=== PATIENT | male | born 1935 | race Caucasian/White ===

== ENCOUNTER 2019-07-14 17:07 | Inpatient (IN) | payer OTHER ==
[2019-07-14 18:15] LABS: Absolute Lymphocytes (CBC) 0.2 K/uL (0.7-4.9); Basophils % 0.2 % (0-1.3); Lymphocytes % 2.3 % (15.3-44.8); MPV 9.5 fL (7.6-11.3)
[2019-07-14] MEDS ORDERED: IBUPROFEN 400 MG TAB ONE (18:20)
[2019-07-14] MEDS ORDERED: NA CHLORIDE 0.9% 1,000 ML ONE (18:20)
[2019-07-14] MEDS ORDERED: IBUPROFEN 200 MG TAB PO ONE (18:20)
[2019-07-14 18:27] LABS: Potassium 3.2 mmol/L (3.5-5.1)
[2019-07-14] MEDS ORDERED: NA CHLORIDE 0.9% 2,000 ML ONE (19:18)
[2019-07-14] MEDS ORDERED: CEFTRIAXONE/SWI 1gm 1 GM/10 ML SYR ONE (19:18)
[2019-07-14] MEDS ORDERED: NA CHLORIDE 0.9% 250 ML ONE (19:18)
[2019-07-14] MEDS ORDERED: AZITHROMYCIN 500 MG INJ IVPB ONE (19:18)
[2019-07-14] MEDS ORDERED: IPRATROPIUM BROM 0.5MG/2.5ML ONE (19:59)
[2019-07-14] MEDS ORDERED: LEVALBUTEROL 1.25 MG/3 ML NEB ONE (19:59)
[2019-07-14 20:35] LABS: Blood Morphology Comment NOT SEEN (NOT SEEN); Platelet Estimate ADEQ
--- NOTE | 2019-07-14 20:36 | RAD REPORT ---
EXAM DESCRIPTION: RAD - Chest Single View - 07/14/2019 6:02 pm CLINICAL HISTORY: Fever COMPARISON: October 2009 TECHNIQUE: AP portable chest image was obtained 1759 hours . FINDINGS: Lung volumes are low. This accentuates interstitial pattern. Minimal patchy opacification is present left base near the diaphragm. Cardiac silhouette is enlarged by body habitus, portable brittany hnique and shallow inspiration. These factors also accentuates vasculature. No measurable pleural eff usion and no pneumothorax. No acute bony abnormality seen. No acute aortic findings suspected. IMPRESSION: Heart, vasculature and lung markings are all accentuated by shallow inspiration. This co uld mask an early failure or volume overload. Patchy left base opacification is also present and could indicate developing or early pneumonia.
--- NOTE | 2019-07-14 20:55 | ER ---
Nurse's Notes [facility] Name: Jay Jay Finn Age: 84 yrs Sex: Male : 1935 Arrival Date: 07/14/2019 Time: 17:10 Bed 26 Private MD: Diagnosis: Pneumonia, unspecified organism;Sepsis, unspecified organism Presentation: 07/14 17:22 Presenting complaint: Patient states: chills since last night. Pt's states "he's aa5 only had a cup of hot chocolate today and he threw it up". Pt denies cough. Pt's reports giving Tylenol 1000mg at 1530. Transition of care: patient was not received from another setting of care. Onset of symptoms was July 14, 2019. Risk Assessment: Do you want to hurt yourself or someone else? Patient reports no desire to harm self or others. Initial Sepsis Screen: Does the patient meet any 2 criteria? Systolic BP < 90 mmHg. HR > 90 bpm. Does the patient have a suspected source of infection? Yes:. Care prior to arrival: None. 17:22 Acuity: KEENA 2 aa5 17:22 Method Of Arrival: Wheelchair aa5 17:22 Initial Sepsis Screen: If YES to both, name of provider notified: Torrie MARCIALaa5 Historical: - Allergies: 17:24 No Known Allergies; aa5 - Home Meds: 17:26 lovastatin 40 mg Oral tab once daily [Active]; metformin 500 mg Oral tab 2 times per aa5 day [Active]; lisinopril-hydrochlorothiazide 20-12.5 mg oral tab once daily [Active]; - PMHx: 17:24 Hypertension; Diabetes - NIDDM; Hyperlipidemia; aa5 - PSHx: 17:26 pamela knees; aa5 - Immunization history:: Adult Immunizations up to date. - Ebola Screening: : No symptoms or risks identified at this time. - Social history:: Smoking status: Patient/guardian denies using tobacco. Screenin:55 Abuse screen: Denies threats or abuse. Denies injuries from another. Nutritional wh screening: No deficits noted. Tuberculosis screening: No symptoms or risk factors identified. Fall Risk None identified. Assessment: 17:45 General: Appears in no apparent distress. Behavior is calm, cooperative, appropriate wh for age. Pain: Denies pain. Neuro: Level of Consciousness is awake, alert, obeys commands, Oriented to person, place, time, situation, Appropriate for age. Cardiovascular: Heart tones S1 S2. Respiratory: Airway is patent Respiratory effort is even, unlabored, Respiratory pattern is regular, symmetrical, Breath sounds are clear bilaterally. GI: Abdomen is flat, non-distended, Bowel sounds present X 4 quads. : No signs and/or symptoms were reported regarding the genitourinary system. EENT: No signs and/or symptoms were reported regarding the EENT system. Derm: Skin is intact, is healthy with good turgor, Skin is pink, warm \\T\\ dry. normal. Musculoskeletal: Circulation, motion, and sensation intact. 18:54 Reassessment: Patient appears in no apparent distress at this time. No changes from previously documented assessment. Patient and/or family updated on plan of care and expected duration. Pain level reassessed. Patient is alert, oriented x 3, equal unlabored respirations, skin warm/dry/pink. Patient denies pain at this time. 19:45 Reassessment: Patient appears in no apparent distress at this time. No changes from wh previously documented assessment. Patient and/or family updated on plan of care and expected duration. Pain level reassessed. Patient is alert, oriented x 3, equal unlabored respirations, skin warm/dry/pink. Patient denies pain at this time. 20:51 Reassessment: Patient appears in no apparent distress at this time. No changes from wh previously documented assessment. Patient and/or family updated on plan of care and expected duration. Pain level reassessed. Patient is alert, oriented x 3, equal unlabored respirations, skin warm/dry/pink. Patient denies pain at this time. 22:30 Reassessment: Patient appears in no apparent distress at this time. No changes from wh previously documented assessment. Patient and/or family updated on plan of care and expected duration. Pain level reassessed. Patient is alert, oriented x 3, equal unlabored respirations, skin warm/dry/pink. Patient denies pain at this time. Vital Signs: 17:23 BP 88 / 55; Pulse 110; Resp 18 S; Temp 100.0(O); Pulse Ox 92% on R/A; aa5 18:54 BP 87 / 61; Pulse 81; Resp 18; Temp 98.8; Pulse Ox 96% on R/A; 19:14 Weight 106.14 kg; Height 6 ft. (182.88 cm); wh 19:45 BP 83 / 60; Pulse 75; Resp 18; Pulse Ox 96% on R/A; wh 20:53 BP 85 / 61; Pulse 71; Resp 18; Pulse Ox 96% on R/A; wh 22:30 BP 85 / 58; Pulse 75; Resp 18; Pulse Ox 94% on R/A; wh 23:39 BP 93 / 67; Pulse 82; Resp 17; Pulse Ox 97% on R/A; wh 19:14 Body Mass Index 31.74 (106.14 kg, 182.88 cm) ED Course: 17:10 Patient arrived in ED. cl3 17:21 Arm band placed on. aa5 17:23 Triage completed. aa5 17:30 Luciano Louie is Primary Nurse. 17:32 Torrie Najera FNP-C is [facility]. kb 17:32 Javid Harrell MD is Attending Physician. kb 17:50 EKG done, by ED staff. lt1 17:55 Initial lab(s) drawn, by me, sent to lab. First set of blood cultures drawn by me. lt1 18:01 Inserted saline lock: 20 gauge in right antecubital area, using aseptic technique. lt1 18:56 Patient has correct armband on for positive identification. Bed in low position. Call light in reach. Side rails up X 1. Pulse ox on. NIBP on. 20:54 Renzo Mcclure MD is Hospitalizing Provider. kb 23:32 No provider procedures requiring assistance completed. Patient admitted, IV remains in place. Administered Medications: 18:22 Drug: NS 0.9% 1000 ml Route: IV; Rate: 1000 ml; Site: right antecubital; 22:32 Follow up: Response: No adverse reaction; IV Status: Completed infusion 18:22 Drug: Ibuprofen 600 mg Route: PO; 23:40 Follow up: Response: No adverse reaction; Temperature is decreased 19:25 Drug: NS 0.9% (30 ml/kg) 30 ml/kg Route: IV; Rate: bolus; Site: right antecubital; 22:31 Follow up: Response: No adverse reaction; IV Status: Completed infusion 19:26 Drug: Rocephin 1 grams Route: IV; Rate: calculated rate; Site: right antecubital; 22:31 Follow up: Response: No adverse reaction; IV Status: Completed infusion 19:28 Drug: Zithromax 500 mg Route: IVPB; Infused Over: 1 hrs; Site: right antecubital; 22:32 Follow up: Response: No adverse reaction; IV Status: Completed infusion 20:07 Drug: Xopenex 1.25 mg Route: Inhalation; 20:07 Drug: AtroVENT Aerosol 0.5 mg Route: Inhalation; Outcome: 20:54 Decision to Hospitalize by Provider. 23:32 Admitted to Med/surg accompanied by tech, via wheelchair, room 228, with chart, Report called to Aubrie Robles RN 23:32 Condition: stable 23:32 Instructed on the need for admit. 23:40 Patient left the ED. Signatures: Torrie Najera, FINAL COAT SPRAYER-C FINAL COAT SPRAYER-Lidia Sanchez, RN RN aa5 Luciano Louie Chelsea, Arlette lt1 Corina Apple cl3 Corrections: (The following items were deleted from the chart) 17:33 17:22 Presenting complaint: Patient states: chills since last night. Pt's states aa5 "he's only had a cup of hot chocolate today and he threw it up" aa5 17:33 17:22 Initial Sepsis Screen: Does the patient meet any 2 criteria? HR > 90 bpm. Does aa5 the patient have a suspected source of infection? No. Patient's initial sepsis screen is negative. aa5 17:41 17:22 Initial Sepsis Screen: Does the patient meet any 2 criteria? HR > 90 bpm. Does aa5 the patient have a suspected source of infection? No. Patient's initial sepsis screen is negative. aa5 18:55 18:54 BP 87 / 61; Pulse 81bpm; Resp 18bpm; Pulse Ox 96% RA; [facility]
--- NOTE | 2019-07-14 20:55 | EDPHYS ---
Physician Documentation [facility] Name: Jay Jay Finn Age: 84 yrs Sex: Male : 1935 Arrival Date: 07/14/2019 Time: 17:10 Bed 26 Private MD: ED Physician Javid Harrell HPI: 07/14 21:03 This 84 yrs old Male presents to ER via Wheelchair with complaints of Chills, kb Fever. 21:03 The patient or guardian reports flu symptoms, low-grade fever, myalgias. Onset: The kb symptoms/episode began/occurred last night. Severity of symptoms: At their worst the symptoms were moderate, in the emergency department the symptoms are unchanged. Modifying factors: The symptoms are alleviated by nothing, the symptoms are aggravated by nothing. Associated signs and symptoms: Pertinent positives: fever. The patient has not experienced similar symptoms in the past. The patient has not recently seen a physician. Pt reports chills last night and today. Denies cough, congestion, shortness of breath, abd pain, chest pain. States he has had a little achiness in his legs from shaking so hard with chills. Historical: - Allergies: 17:24 No Known Allergies; aa5 - Home Meds: 17:26 lovastatin 40 mg Oral tab once daily [Active]; metformin 500 mg Oral tab 2 times per aa5 day [Active]; lisinopril-hydrochlorothiazide 20-12.5 mg oral tab once daily [Active]; - PMHx: 17:24 Hypertension; Diabetes - NIDDM; Hyperlipidemia; aa5 - PSHx: 17:26 pamela knees; aa5 - Immunization history:: Adult Immunizations up to date. - Ebola Screening: : No symptoms or risks identified at this time. - Social history:: Smoking status: Patient/guardian denies using tobacco. ROS: 21:06 ENT: Negative for injury, pain, and discharge, Neck: Negative for injury, pain, and kb swelling, Cardiovascular: Negative for chest pain, palpitations, and edema, Respiratory: Negative for shortness of breath, cough, wheezing, and pleuritic chest pain, Abdomen/GI: Negative for abdominal pain, nausea, vomiting, diarrhea, and constipation, MS/Extremity: Negative for injury and deformity, Skin: Negative for injury, rash, and discoloration, Neuro: Negative for headache, weakness, numbness, tingling, and seizure. 21:06 Constitutional: Positive for body aches, chills, fever, Negative for fatigue, malaise, poor PO intake, weight loss. Exam: 21:07 Constitutional: This is a well developed, well nourished patient who is awake, alert, kb and in no acute distress. Head/Face: Normocephalic, atraumatic. ENT: Nares patent. No nasal discharge, no septal abnormalities noted. Tympanic membranes are normal and external auditory canals are clear. Oropharynx with no redness, swelling, or masses, exudates, or evidence of obstruction, uvula midline. Mucous membranes moist. Neck: Trachea midline, no thyromegaly or masses palpated, and no cervical lymphadenopathy. Supple, full range of motion without nuchal rigidity, or vertebral point tenderness. No Meningismus. Chest/axilla: Normal chest wall appearance and motion. Nontender with no deformity. No lesions are appreciated. Cardiovascular: Regular rate and rhythm with a normal S1 and S2. No gallops, murmurs, or rubs. Normal PMI, no JVD. No pulse deficits. Respiratory: Lungs have equal breath sounds bilaterally, clear to auscultation and percussion. No rales, rhonchi or wheezes noted. No increased work of breathing, no retractions or nasal flaring. Abdomen/GI: Soft, non-tender, with normal bowel sounds. No distension or tympany. No guarding or rebound. No evidence of tenderness throughout. Back: No spinal tenderness. No costovertebral tenderness. Full range of motion. Skin: Warm, dry with normal turgor. Normal color with no rashes, no lesions, and no evidence of cellulitis. MS/ Extremity: Pulses equal, no cyanosis. Neurovascular intact. Full, normal range of motion. Neuro: Awake and alert, GCS 15, oriented to person, place, time, and situation. Cranial nerves II-XII grossly intact. Motor strength 5/5 in all extremities. Sensory grossly intact. Cerebellar exam normal. Normal gait. Vital Signs: 17:23 BP 88 / 55; Pulse 110; Resp 18 S; Temp 100.0(O); Pulse Ox 92% on R/A; aa5 18:54 BP 87 / 61; Pulse 81; Resp 18; Temp 98.8; Pulse Ox 96% on R/A; wh 19:14 Weight 106.14 kg; Height 6 ft. (182.88 cm); wh 19:45 BP 83 / 60; Pulse 75; Resp 18; Pulse Ox 96% on R/A; wh 20:53 BP 85 / 61; Pulse 71; Resp 18; Pulse Ox 96% on R/A; wh 22:30 BP 85 / 58; Pulse 75; Resp 18; Pulse Ox 94% on R/A; wh 23:39 BP 93 / 67; Pulse 82; Resp 17; Pulse Ox 97% on R/A; wh 19:14 Body Mass Index 31.74 (106.14 kg, 182.88 cm) wh MDM: 17:33 Patient medically screened. kb 20:53 Data reviewed: vital signs, nurses notes. Data interpreted: Pulse oximetry: on room air kb is 100 %. Interpretation: normal. Counseling: I had a detailed discussion with the patient and/or guardian regarding: the historical points, exam findings, and any diagnostic results supporting the discharge/admit diagnosis, lab results, radiology results, the need for further work-up and treatment in the hospital. Physician consultation: Renzo Mcclure MD regarding admission, to the telemetry unit. patient's condition, and will see patient in ED, immediately, would like further tests performed, CT scan. 07/14 17:38 Order name: Procalcitonin 07/14 17:38 Order name: Basic Metabolic Panel 07/14 17:38 Order name: Blood Culture Adult (2) 07/14 17:38 Order name: CBC with Diff 07/14 17:38 Order name: Lactate 07/14 18:07 Order name: Glucose, Ancillary Testing; Complete Time: 18:09 EDMS 07/14 17:38 Order name: Chest Single View XRAY 07/14 18:27 Order name: CBC with Automated Diff; Complete Time: 20:38 EDMS 07/14 18:28 Order name: Basic Metabolic Panel; Complete Time: 18:29 EDMS 07/14 19:05 Order name: Procalcitonin; Complete Time: 19:09 EDMS 07/14 19:07 Order name: Lactate; Complete Time: 19:09 EDMS 07/14 19:45 Order name: Flu 07/14 20:18 Order name: Influenza Screen (A ; Complete Time: 20:23 EDMS 07/14 20:36 Order name: Manual Differential; Complete Time: 20:38 EDMS 07/14 17:38 Order name: Accucheck; Complete Time: 18:03 kb 07/14 17:38 Order name: Cardiac monitoring; Complete Time: 18:03 kb 07/14 17:38 Order name: EKG - Nurse/Tech; Complete Time: 18:03 kb 07/14 17:38 Order name: IV Saline Lock - Large Bore; Complete Time: 18:03 kb 07/14 17:38 Order name: Labs collected and sent; Complete Time: 18:03 kb 07/14 17:38 Order name: O2 Per Protocol; Complete Time: 18:03 kb 07/14 17:38 Order name: O2 Sat Monitoring; Complete Time: 18:03 kb 07/14 20:38 Order name: RAD; Complete Time: 20:41 EDMS 07/14 18:30 Order name: Vital Signs; Complete Time: 18:41 kb Administered Medications: 18:22 Drug: NS 0.9% 1000 ml Route: IV; Rate: 1000 ml; Site: right antecubital; 22:32 Follow up: Response: No adverse reaction; IV Status: Completed infusion 18:22 Drug: Ibuprofen 600 mg Route: PO; 23:40 Follow up: Response: No adverse reaction; Temperature is decreased 19:25 Drug: NS 0.9% (30 ml/kg) 30 ml/kg Route: IV; Rate: bolus; Site: right antecubital; 22:31 Follow up: Response: No adverse reaction; IV Status: Completed infusion 19:26 Drug: Rocephin 1 grams Route: IV; Rate: calculated rate; Site: right antecubital; 22:31 Follow up: Response: No adverse reaction; IV Status: Completed infusion 19:28 Drug: Zithromax 500 mg Route: IVPB; Infused Over: 1 hrs; Site: right antecubital; 22:32 Follow up: Response: No adverse reaction; IV Status: Completed infusion 20:07 Drug: Xopenex 1.25 mg Route: Inhalation; 20:07 Drug: AtroVENT Aerosol 0.5 mg Route: Inhalation; Disposition: 07/14/19 20:54 Hospitalization ordered by Renzo Mcclure for Inpatient Admission. Preliminary diagnosis are Pneumonia, unspecified organism, Sepsis, unspecified organism. - Bed requested for Telemetry/MedSurg (Inpatient). - Status is Inpatient Admission. - Condition is Stable. - Problem is new. - Symptoms are unchanged. UTI on Admission? No Addendum: 07/17/2019 10:24 Co-signature as Attending Physician, Javid Harrell MD I agree with the assessment and k dr plan of care. Signatures: Dispatcher [employer] EDIL Torrie Najera, ANTONIA-C IOS ARCHITECT-Ckb Javid Harrell MD MD [facility] Lidia Castillo, RN RN aa5 Niya Christianson, RN RN Luciano Louie Corrections: (The following items were deleted from the chart) 07/14 21:05 21:03 Pt reports chills last night and today. Denies cough, congestion, shortness of kb breath, abd pain, chest pain. . 23:01 20:54 Hospitalization Ordered by Renzo Mcclure MD for Inpatient Admission. Preliminary diagnosis is Pneumonia, unspecified organism; Sepsis, unspecified organism. Bed requested for Telemetry/MedSurg (Inpatient). Status is Inpatient Admission. Condition is Stable. Problem is new. Symptoms are unchanged. UTI on Admission? No. 23:40 23:01 07/14/2019 20:54 Hospitalization Ordered by Renzo Mcclure MD for Inpatient Admission. Preliminary diagnosis is Pneumonia, unspecified organism; Sepsis, unspecified organism. Bed requested for Telemetry/MedSurg (Inpatient). Status is Inpatient Admission. Condition is Stable. Problem is new. Symptoms are unchanged. UTI on Admission? No. cg
[2019-07-14] MEDS ORDERED: MORPHINE 2 MG/ML SYR IV PRN (22:47)
[2019-07-14] MEDS ORDERED: ONDANSETRON 4 MG/2 ML VIAL IV PRN (22:47)
[2019-07-14] MEDS ORDERED: GUAIFENESIN/DM 5 ML UCUP PO PRN (22:49)
[2019-07-14] MEDS ORDERED: NITROGLYCERIN 0.4 MG/TAB SL ONE (22:49)
[2019-07-14] MEDS ORDERED: POTASSIUM 25 MEQ EFFERV TAB PO ONE (22:49)
[2019-07-14] MEDS ORDERED: NA CHLORIDE 0.9% 1,000 ML IV SCH (23:00)
--- NOTE | 2019-07-14 23:30 | HP ---
Date of Admission: 07/14/2019 Presenting Complaint: Fever with chills since 1 day. History Of Present Illness: Mr. Aakash Goyal is an 84-year-old male with past medical hi story of diabetes, hypertension, hyperlipidemia, who developed intermittent fever and chills since th e last 1 day. Symptoms were associated with a feeling of weakness. Patient denies any cough. He de nies any shortness of breath. He denies any new diarrhea. He denies any pain. Symptoms continued t o worsen, at times felt like being continuous. Patient presented to the ED. In the ED, he was noted to have borderline low blood pressure with systolic in the 80s, which responded with IV fluids to th e upper 80s. He denies any recent travel. He denies any cough contacts. chest x-ray shows left bas e pneumonia. at bedside helping with history. Past Medical History: Significant for hypertension, hyperlipidemia, intermittent chronic lower extre mity edema. Home Medications: Include HCTZ, lovastatin, metformin, and some eyedrops. Family History: Noncontributory in this 84-year-old male. Social History: He is a lifelong nonsmoker. Resides in the community with his spouse. Denies any a lcohol or illicit drug use. Allergies: NO KNOWN DRUG ALLERGIES. Review of Systems: All systems reviewed x14 were negative except as mentioned above. Physical Examination: VITAL SIGNS: Blood pressure of 86/61, pulse of 76, respiratory rate of 18, O2 saturation is 93% on r oom air, temperature afebrile at 100.0 on presentation, on repeat temperature now down to 98.8. GENERAL: Elderly male, overweight, calm, sitting up in bed. HEENT: Head: Atraumatic, normocephalic. Pupils equal and reactive to light. Alliance conjunctivae. M oist oral mucosa. No mucosal patches. NECK: No JVD. No carotid bruit. RESPIRATORY: Coarse at right base, noted increasing egophony over the left base also noted. No rhon chi. No wheeze. CARDIOVASCULAR: S1, S2. Rate and rhythm regular. GI: Distended, but soft. Bowel sounds positive in all 4 quadrants. No organomegaly. EXTREMITIES: Trace pedal edema. No calf tenderness bilaterally. NEURO: Patient is alert and conversant. Diagnostic Studies: Chest x-ray shows left base infiltrate. EKG showed normal sinus rhythm at 75 beats per minute, borderline right bundle-branch block with poor R-wave progression. WBC 10, hemoglobin 13, platelets 191, neutrophils 95%, with 4% bands. Glucose of 227, chloride 109, potassium 3.2, sodium 140, creatinine 1.3, BUN 20, procalcitonin 8.3. Lactic acid 4.4. Impression: 1.Left base pneumonia. 2.Diabetes with hyperglycemia. 3.Hypotension with presumed sepsis. Plan: 1.We will admit patient to the floor. My suspicion for the following, left pneumonia, likely commun ity acquired. We will start patient on IV Levaquin. We will obtain sputum if feasible. Despite abs ence of cough, we will still put patient on Mucinex. We will do DuoNeb p.r.n. 2.Hypotension. Continue IV fluid boluses. Hold diuretics for now. 3.Diabetes mellitus. Continue metformin b.i.d. since EGFR of 53 mL/min. We will do Accu-Cheks with insulin sliding scale. 4.Advanced directive. Patient wished to be DNR. 5.Deep venous thrombosis prophylaxis with subcutaneous Lovenox. Total time spent, review of record, discussion with patient and evaluation greater than 60 minutes. We will admit to inpatient status. EO/MODL Voice ID: [id number]
[2019-07-15 00:05] VITALS: BMI 31.8
[2019-07-15] MEDS: HEPARIN 5000 UNIT/ML 1 ML VIAL SQ SCH ×3 (00:29→17:00)
[2019-07-15] MEDS: Levofloxacin 750mg IV 750 MG/150 ML BAG IV SCH (00:34)
[2019-07-15] MEDS: MIDODRINE HCL 5 MG TABLET PO SCH ×4 (00:45→20:28)
[2019-07-15] MEDS: Ringers Lactate 1,000 ML IV SCH ×2 (01:07→14:09)
[2019-07-15 05:29] LABS: Basophils % 0.2 % (0-1.3); Hematocrit 36.8 % (39.6-49.0); Lymphocytes % 5.8 % (15.3-44.8)
[2019-07-15 05:51] LABS: ALT/SGPT 13 U/L (12-78); AST/SGOT 10 U/L (15-37); Albumin 2.5 g/dL (3.4-5.0); Alkaline Phosphatase 72 U/L (45-117); BUN Blood Urea Nitrogen 25 mg/dL (7-18); Bicarbonate 24 mmol/L (21-32); Bilirubin Total 0.5 mg/dL (0.2-1.0); Glucose Level 169 mg/dL (74-106); Potassium 3.8 mmol/L (3.5-5.1); Protein, Total 6.1 g/dL (6.4-8.2); Sodium Level 142 mmol/L (136-145); Troponin I < 0.02 ng/mL (0.0-0.045)
[2019-07-15] MEDS ORDERED: Ringers Lactate 1,000 ML IV ONE (06:00)
[2019-07-15 07:04] LABS: Urine Appearance TURBID; Urine Blood 2+ (NEG); Urine Color DK YELLOW; Urine Glucose 1+ (NEG); Urine Protein 2+ (NEG); Urine Specific Gravity >=1.030 (1.005-1.030); Urine Urobilinogen 0.2 mg/dL (0.2-1.0); Urine pH 5.5 (5.0-7.0)
[2019-07-15 07:21] LABS: Blood Morphology Comment NOTED (NOT SEEN); Burr Cells 2+; Platelet Estimate ADEQ
[2019-07-15] MEDS: INSULIN -REGULAR HUMAN 50 UNIT/0.5 ML ML SQ SCH ×4 (07:30→20:28)
[2019-07-15 07:46] LABS: Urine Bilirubin NEGATIVE (NEG); Urine Microscopic Reflex ORDER UMIC
--- NOTE | 2019-07-15 08:24 | EKG ---
Test Date: 2019-07-14 Test Time: 17:40:01 Offal Separator: ADILENET MEASUREMENT RESULTS: Intervals: Rate: 95 NM: 178 QRSD: 88 QT: 332 QTc: 417 [place]: P: -28 NM: 178 QRS: -14 T: 63 INTERPRETIVE STATEMENTS: Normal sinus rhythm Nonspecific T wave abnormality Abnormal ECG No previous ECG available for comparison Electronically Signed On 07-15-19 08:23:41 DRILL SERGEANT by Cesar Machado
[2019-07-15 08:52] LABS: Urine Bacteria 20-50 /HPF (NONE SEEN); Urine Culture Reflex Order REFLEXED; Urine RBC 20-50 /HPF (NONE SEEN)
[2019-07-15] MEDS: GUAIFENESIN 600 MG SA TAB PO SCH ×2 (10:00→20:28)
[2019-07-15] MEDS: FAMOTIDINE 20 MG TAB PO SCH ×2 (10:00→20:28)
[2019-07-15] MEDS: METFORMIN HCL 500 MG TAB PO SCH ×2 (10:00→17:35)
--- NOTE | 2019-07-15 10:05 | P.PN ---
Subjective Date of Service: 07/15/19 (Hospitalist) Chief Complaint: Chills Subjective: Improving (Patient is improving admitted with sudden onset of chills presumed urinary tract infection denies any pulmonary complaints) Review of Systems Unremarkable Physical Examination - Vital Signs Temperature: 97.8 F Blood Pressure: 99/62 Pulse: 72 Respirations: 18 Pulse Ox (%): 96 - Physical Exam General: Alert, In no apparent distress, Oriented x3 Neck: Supple Respiratory: Clear to auscultation bilaterally Cardiovascular: No edema, Regular rate/rhythm - Studies Laboratory Data (last 24 hrs) 07/14/19 17:55: WBC 10.1, Hgb 13.7, Hct 39.0 L, Plt Count 191 07/14/19 17:55: Sodium 140, Potassium 3.2 L, BUN 20 H, Creatinine 1.29, Glucose 227 H Microbiology Data (last 24 hrs): 07/14/19 19:49 Nasopharnyx Influenza Type A Antigen Screen - Final 07/14/19 19:49 Nasopharnyx Influenza Type B Antigen Screen - Final Assessment & Plan - Problems (Diagnosis) (1) UTI (urinary tract infection) Current Visit: Yes Status: Acute Plan: Patient is 84 years of age admitted with sudden onset of chills urinalysis positive for infection doubt pneumonia continue with antibiotics white count is elevated chest x-ray PA and lateral cultures all pending pro calcitonin significantly elevated most likely he has bacteremia from urosepsis admitted with sepsis low blood continue with IV fluids ultrasound of the kidneys ordered Qualifiers: Urinary tract infection type: acute cystitis
[2019-07-15] MEDS: ACETAMINOPHEN 500 MG TAB PO PRN (14:02)
--- NOTE | 2019-07-15 16:23 | RAD REPORT ---
EXAM DESCRIPTION: Jeffery Pa And Lat (2 Views)07/15/2019 4:01 pm CLINICAL HISTORY: Cough COMPARISON: July 14, 2019 FINDINGS: Mild bilateral pulmonary opacities are present. The heart is normal size IMPRESSION: Mild bilateral interstitial lung opacities may represent interstitial pulmonary edema, pneumonitis or atypical pneumonia
--- NOTE | 2019-07-15 20:42 | RAD REPORT ---
EXAM DESCRIPTION: US - Renal Ultrasound-Complete - 07/15/2019 8:34 pm CLINICAL HISTORY: . Urinary tract infection COMPARISON: None. FINDINGS: The right kidney measures 11 cm with a normal echotexture. Two cysts are present. Largest measures 18 millimeters The left kidney measures 12 cm with a normal echotexture. 2 cysts are present largest measures 22 mil limeters Hydronephrosis is not seen. No gross abnormality of bladder IMPRESSION: Small bilateral renal cysts
[2019-07-16] MEDS: Ringers Lactate 1,000 ML IV SCH ×4 (00:31→20:37)
[2019-07-16] MEDS: ALBUTEROL 2.5 MG/3 ML NEB SOL NEB PRN ×2 (06:10→17:43)
[2019-07-16] MEDS: INSULIN -REGULAR HUMAN 50 UNIT/0.5 ML ML SQ SCH ×4 (07:30→20:44)
[2019-07-16] MEDS: METFORMIN HCL 500 MG TAB PO SCH ×2 (08:16→17:16)
[2019-07-16] MEDS: GUAIFENESIN 600 MG SA TAB PO SCH ×2 (08:16→20:40)
[2019-07-16] MEDS: MIDODRINE HCL 5 MG TABLET PO SCH ×3 (08:17→20:51)
[2019-07-16] MEDS: FAMOTIDINE 20 MG TAB PO SCH ×2 (08:17→20:40)
--- NOTE | 2019-07-16 10:00 | P.PN ---
Subjective Date of Service: 07/16/19 Chief Complaint: Gram-negative sepsis Patient is still complaining of some shortness of breath he is now has some dysuria blood cultures are positive Review of Systems General: Weakness Respiratory: Shortness of Breath Physical Examination - Vital Signs Temperature: 98.9 F Blood Pressure: 99/59 Pulse: 63 Respirations: 18 Pulse Ox (%): 94 - Physical Exam General: Alert, In no apparent distress, Oriented x3 Neck: Supple Respiratory: Clear to auscultation bilaterally Cardiovascular: No edema, Regular rate/rhythm Gastrointestinal: Normal bowel sounds, Soft and benign Assessment & Plan - Problems (Diagnosis) (1) UTI (urinary tract infection) Current Visit: Yes Status: Acute Plan: Patient admitted with urosepsis blood cultures are positive for Gram negative rods patient is on levofloxacin blood pressure low I have increased lactated ringers 200 cc an hr ultrasound of the kidneys was negative patient's blood pressure is little low continue to monitor repeat labs ordered I have also ordered a bladder scan to rule out prostate obstruction Qualifiers: Urinary tract infection type: acute cystitis
[2019-07-16 10:38] LABS: Hematocrit 36.5 % (39.6-49.0); MPV 9.1 fL (7.6-11.3); RBC Red Blood Cell Count 4.31 M/uL (4.33-5.43)
[2019-07-16 10:50] LABS: Albumin 2.3 g/dL (3.4-5.0); Bilirubin Total 0.3 mg/dL (0.2-1.0); Potassium 3.4 mmol/L (3.5-5.1); Protein, Total 6.2 g/dL (6.4-8.2)
[2019-07-16] MEDS: Levofloxacin 750mg IV 750 MG/150 ML BAG IV SCH (23:20)
[2019-07-16] MEDS: MELATONIN 5 MG TABLET PO PRN (23:21)
[2019-07-17] MEDS: ACETAMINOPHEN 500 MG TAB PO PRN ×2 (04:32→16:41)
[2019-07-17] MEDS: Ringers Lactate 1,000 ML IV SCH ×3 (04:33→23:48)
[2019-07-17] MEDS: INSULIN -REGULAR HUMAN 50 UNIT/0.5 ML ML SQ SCH ×4 (07:30→21:00)
[2019-07-17] MEDS: MIDODRINE HCL 5 MG TABLET PO SCH ×3 (09:00→21:00)
[2019-07-17] MEDS: GUAIFENESIN 600 MG SA TAB PO SCH ×2 (09:29→22:23)
[2019-07-17] MEDS: METFORMIN HCL 500 MG TAB PO SCH ×2 (09:29→16:41)
[2019-07-17] MEDS: FAMOTIDINE 20 MG TAB PO SCH ×2 (09:29→22:23)
[2019-07-17] MEDS: MELATONIN 5 MG TABLET PO PRN (22:23)
[2019-07-17] MEDS ORDERED: Levofloxacin 750mg IV 750 MG/150 ML BAG IV SCH (23:00)
--- NOTE | 2019-07-18 00:24 | PN ---
Patient is ambulating in the room and his temperature is normal. Even though, this morning it was 10 0.3. Patient has scattered wheezes bilaterally. He will have repeat chest x-ray tomorrow depending on the findings. Discharge plan will be instituted. SUNITHA/CHITO Voice ID: [id number] Report ID: [id number]
[2019-07-18] MEDS: Ringers Lactate 1,000 ML IV SCH ×3 (02:00→17:52)
[2019-07-18] MEDS: INSULIN -REGULAR HUMAN 50 UNIT/0.5 ML ML SQ SCH ×4 (07:30→20:33)
[2019-07-18] MEDS: MIDODRINE HCL 5 MG TABLET PO SCH ×3 (08:52→20:33)
[2019-07-18] MEDS: METFORMIN HCL 500 MG TAB PO SCH ×2 (08:52→17:52)
[2019-07-18] MEDS: GUAIFENESIN 600 MG SA TAB PO SCH ×2 (08:52→20:33)
[2019-07-18] MEDS: FAMOTIDINE 20 MG TAB PO SCH ×2 (08:52→20:32)
--- NOTE | 2019-07-18 09:28 | RAD REPORT ---
EXAM DESCRIPTION: RAD - Chest Pa And Lat (2 Views) - 07/18/2019 9:05 am CLINICAL HISTORY: pneumonia Chest pain. COMPARISON: Chest Pa And Lat (2 Views) dated 07/15/2019; Chest Single View dated 07/14/2019; CHEST P A AND LAT 2 VIEW dated 11/11/2009; CHEST PA AND LAT 2 VIEW dated 09/24/2009 TECHNIQUE: PA and lateral views of the chest were obtained. FINDINGS: The lungs are hyperexpanded compatible with COPD. The heart is upper limit of normal in si ze. No fracture or aggressive bony process. IMPRESSION: COPD without acute process identified.
[2019-07-18] MEDS: levoFLOXacin 500 MG TAB PO SCH (20:32)
[2019-07-18] MEDS: MELATONIN 5 MG TABLET PO PRN (20:33)
--- NOTE | 2019-07-18 23:17 | PN ---
Subjective: Patient is afebrile today. He is ambulating in the home. He has a slight wheezing. Hi s x-ray does not show any active infiltrate anymore. Patient will be switched to oral antibiotics an d very likely discharged in a.m. SUNITHA/CHITO Voice ID: [id number] Report ID: [id number]
[2019-07-19 02:29] VITALS: O2SAT 97
[2019-07-19] MEDS: INSULIN -REGULAR HUMAN 50 UNIT/0.5 ML ML SQ SCH (07:30)
[2019-07-19] MEDS: GUAIFENESIN 600 MG SA TAB PO SCH (08:16)
[2019-07-19] MEDS: FAMOTIDINE 20 MG TAB PO SCH (08:17)
[2019-07-19] MEDS: METFORMIN HCL 500 MG TAB PO SCH (08:17)
[2019-07-19] MEDS: MIDODRINE HCL 5 MG TABLET PO SCH (08:17)
[2019-07-19] MEDS: levoFLOXacin 500 MG TAB PO SCH (08:18)
[2019-07-19 08:53] VITALS: BP 130/87; TEMP 98.1
== END 2019-07-19 12:25 | disposition home or self-care (01) | DRG 871 ==
LOC: ER 17:07 → ERHOLD 23:06 → 2ND 23:31
PROVIDERS: ADMIT Internal Medicine; ATTEND Internal Medicine
DX: A41.51 Sepsis due to Escherichia coli [E. coli] (principal); J18.9 Pneumonia, unspecified organism; N30.00 Acute cystitis without hematuria; E11.65 Type 2 diabetes mellitus with hyperglycemia; I95.9 Hypotension, unspecified; I10 Essential (primary) hypertension; E78.5 Hyperlipidemia, unspecified; Z66 Do not resuscitate
CPT/HCPCS: 36415; 71045; 71046; 76770; 80048; 80053; 81003; 81015; 82947; 83605; 84145; 84484; 85025; 85027; 87040; 87077; 87086; 87088; 87186; 87205; 87804; 93005; 94640; 94760; 96361; 96365; 96367; 99285; J0456; J0696; J1644; J7030; J7120